=== PATIENT | female | born 1990 | race American Indian/Alaskan Native ===

== ENCOUNTER 2017-01-03 04:59 | Inpatient (IN) | payer MEDICAID ==
[2017-01-03] MEDS ORDERED: POLYCILLIN/NS 2 GM/100 ML 2 GM/100 ML BAG IV ONE (05:43)
[2017-01-03 06:26] LABS: Urine Drugs of Abuse Note Disclamer
[2017-01-03 06:38] LABS: Basophils % (Auto) 0.5 % (0.0-1.8); Eosinophils % (Auto) 0.6 % (0.0-4.3); Hematocrit 37.8 % (30.3-42.9); Hemoglobin 12.8 gm/dl (10.1-14.3); Mean Corpuscular HGB Conc 34 % (30-34); Mean Corpuscular Hemoglobin 31 pg (28-32); Mean Corpuscular Volume 90 fl (79-97); Platelet Count 216 K/mm3 (140-440); Red Blood Count 4.19 M/mm3 (3.65-5.03); Red Cell Distribution Width 13.8 % (13.2-15.2); White Blood Count 14.7 K/mm3 (4.5-11.0)
[2017-01-03] MEDS: LACTATED RINGERS 1,000 ML IV SCH ×3 (06:38→09:32)
[2017-01-03] MEDS ORDERED: SUBLIMAZE ONE (07:00)
[2017-01-03] MEDS ORDERED: SUBLIMAZE IV ONE (07:05)
[2017-01-03] MEDS ORDERED: PITOCin/NS 20 UNIT/1000ML DRIP 20,000 MILLIUNITS/1,000 ML BAG IV ONE ×2 (07:40→15:08)
[2017-01-03 07:53] LABS: HIV-1 Antigen p24 Non React (Non React); HIVR-1/2 Ab Non React (Non React)
[2017-01-03] MEDS ORDERED: ePHEDrine SULFATE ONE (08:34)
--- NOTE | 2017-01-03 08:55 | History and Physical Report ---
History of Present Illness Date of examination: 01/03/17 Date of admission: 01/03/17 05:12 Chief complaint: This is a 26 yo at 39+weeks patient c/o leaking since 3 am meconium stained amnionic fluid History of present illness: 26 yo At 39 weeks admitted for srom meconium at 4cm. Her course consist of poor prentqal care with 3 visits. 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 labs: O+ antibody neg H/H 11.9/35.8 pap normal Rubella IMM RPR NR urine culture neg Hep neg HIV neg HSV2 + chlam neg yeyo neg trich neg US 09/17/16 single viable IUP EGA 17 wekks UA 24+2 weeks EDC 01/05/17nl anatomy GBS neg Past History Past Medical History: no pertinent history Past Surgical History: no surgical history Family/Genetic History: none Social history: single, smoking (former) - Obstetrical History Expected Date of Delivery: 01/05/17 Actual Gestation: 39 Week(s) 5 Day(s) : 1 Para: 0 Hx # Term Pregnancies: 0 Number of Pregnancies: 0 Spontaneous Abortions: 0 Induced : 0 Number of Living Children: 0 Medications and Allergies Allergies Allergy/AdvReac Type Severity Reaction Status Date / Time No Known Allergies Allergy Unverified 09/21/13 06:43 Home Medications Medication Instructions Recorded Confirmed Last Taken Type Famotidine [Pepcid] 20 mg PO BID #60 tablet 09/21/13 Unknown Rx HYDROcodone/APAP 5-325 [[place] 1 each PO Q6HR PRN #20 tablet 09/21/13 Unknown Rx 5/325 mg] Active Meds: Active Medications Lactated Ringer's (Lactated Ringers) 1,000 mls @ 125 mls/hr IV DIRECT YADY Last Admin: 01/03/17 08:06 Dose: 125 mls/hr Ampicillin Sodium (Polycillin/Ns 1 Gm/50 Ml) 1 gm in 50 mls @ 100 mls/hr IV Q4HR YADY PRN Reason: Protocol Review of Systems All systems: negative Constitutional: weight gain Eyes: deferred Ears, nose, mouth and throat: deferred Breasts: deferred Genitourinary: deferred, normal appearance, leakage of fluid (meconium), contractions, no genital sores Rectal Exam: deferred Integumentary: deferred - Vital Signs Vital signs: Vital Signs Pulse BP 62 112/69 01/03/17 05:20 01/03/17 05:20 Temp Pulse Resp BP Pulse Ox 97.1 F L 77 14 134/69 98 01/03/17 07:19 01/03/17 08:45 01/03/17 07:19 01/03/17 08:45 01/03/17 08:43 - Physical Exam Breasts: Positive: normal Cardiovascular: Regular rate, Normal S1 Lungs: Positive: Clear to auscultation, Normal air movement Abdomen: Positive: normal appearance, soft. Negative: distention, tenderness Genitourinary (Female): Positive: normal external genitalia, normal perenium Vulva: both: normal Vagina: Positive: normal moisture Uterus: Positive: enlarged Anus/Rectum: Positive: normal perianal skin Extremities: Positive: normal Deep Tendon Reflex Grade: Normal +2 - Obstetrical FHR: category 1 Uterine Contraction Monitor Mode: Palpation Cervical Dilatation: 7 Cervical Effacement Percentage: 80 station: -1 Uterine Contraction Pattern: Regular Uterine Tone Measurement Phase: Contraction Uterine Contraction Intensity: Moderate Results Result Diagrams: 01/03/17 06:24 Abnormal lab results 01/03/17 Range/Units 06:24 WBC 14.7 H (4.5-11.0) K/mm3 Lymph % (Auto) 11.7 L (13.4-35.0) % [place] # 1.0 H (0.0-0.8) K/mm3 Seg Neutrophils % 80.5 H (40.0-70.0) % Seg Neutrophils # 11.9 H (1.8-7.7) K/mm3 All other labs normal. Assessment and Plan A/P HD#1 PROM, active labor 1. admission labs 2. gbs neg discontinue ampicillin 3. offer epidural 4. augemtnation with pitocin 5. expect vaginal dleivery
--- NOTE | 2017-01-03 09:08 | Anesthesia Consultation ---
Anesthesia Consult and Med Hx Date of service: 01/03/17 - Airway Anesthetic Teeth Evaluation: Good ROM Head & Neck: Adequate Mental/Hyoid Distance: Adequate Mallampati Class: Class II Intubation Access Assessment: Good - Pulmonary Exam CTA: Yes - Cardiac Exam Cardiac Exam: No Murmur - Pre-Operative Health Status ASA Pre-Surgery Classification: ASA2 Proposed Anesthetic Plan: Epidural - Pulmonary Hx Asthma: No COPD: No Hx Pneumonia: No - Cardiovascular System Hx Hypertension: No - Central Nervous System Hx Seizures: No Hx Psychiatric Problems: No - Endocrine Hx Renal Disease: No Hx End Stage Renal Disease: No Hx Hypothyroidism: No Hx Hyperthyroidism: No - Hematic Hx Anemia: No Hx Sickle Cell Disease: No - Other Systems Hx Alcohol Use: Yes ('a glass of wine here and there')
[2017-01-03] MEDS ORDERED: ePHEDrine SULFATE IV PRN (09:30)
[2017-01-03] MEDS ORDERED: fentaNYL-BUPIV 2 MCG/ML-0.125% 200 MCG/100 ML BAG EPIDURAL SCH (10:00)
[2017-01-03] MEDS ORDERED: PITOCin/NS 30 UNIT/500ML 30 UNITS/500 ML BAG IV SCH (10:00)
[2017-01-03] MEDS ORDERED: NARCAN 2 MG/2 ML IV PRN (10:00)
[2017-01-03] MEDS ORDERED: POLYCILLIN/NS 1 GM/50 ML 1 GM/50 ML BAG IV SCH (10:00)
[2017-01-03] MEDS ORDERED: XYLOCAINE 2% INFILTRATI ONE (13:51)
--- NOTE | 2017-01-03 14:14 | Procedure Note ---
OB Delivery Note - Delivery Date of Delivery: 01/03/17 Surgeon: CAIN FRIAS Estimated blood loss: other (400cc) - Vaginal Delivery presentation: vertex Delivery position: OP Intrapartum events: no care, meconium Delivery augmentation: pitocin Delivery monitor: external FHT, external uterine Route of delivery: vacuum extraction Indicators for instrumentation: nonreassuring FHR tracing Delivery placenta: spontaneous Delivery cord: nuchal cord Episiotomy: none Delivery laceration: 2nd degree Delivery repair: vicryl Delivery comments: Under adequate epidural anesthesia, the patient was prepped and draped in the dorsal lithotomy position in the standard fashion. station was confirmed at +4 with the head visible in the direct OP position and the head visible without parting the labia. The KIWI vacuum was placed about the head. Adequate confirmation was identified in association with a single maternal pushing effort and uncomplicated delivery of the head was accomplished. The nuchal area was checked and a nuchal cord x1 was identified. These were reduced easily on the perineum. The was bulb suctioned on the perineum. The head spontaneously rested and the shoulders were brought to direct the anterior posterior diameter of the pelvis. Gentle downward retraction was placed in association, with maternal pushing effort an uncomplicated delivery of the anterior shoulder was accomplished followed by spontaneous delivery of the posterior shoulder and remaining body and small parts. The cord was then doubly clamped and cut. The infant passed off to control tower radio operator nurse for further care. When a 5-minute scores were 8 and 9, segment of cord was sent. The placenta was then delivered manually and all placental parts were accounted for. An examination of the uterus was then performed manually and an empty cavity was confirmed. The cervix and vagina were then examined for hemostasis, which was assured. A small second-degree tear of the vagina and superficial perineum was identified. The vagina was repaired using a running lock suture of 2-0 chromic. The perineum was reapproximated using 2-0 vicryl in an interrupted fashion and the perineal skin was reapproximated with interrupted mattress sutures of 2-0 vicryl. Adequate reapproximation and adequate hemostasis was obtained. Needle and sponge counts were correct. Baby bonding with mother. weight 6 pounds 4 ounces. - Infant A Infant Gender: Female
[2017-01-03] MEDS ORDERED: PERCOCET 5/325 PO PRN (14:19)
[2017-01-03] MEDS ORDERED: PHENERGAN PR PRN (14:19)
[2017-01-03] MEDS ORDERED: MILK OF MAGNESIA PO PRN (14:19)
[2017-01-03] MEDS ORDERED: DULCOLAX PR PRN (14:19)
[2017-01-03] MEDS ORDERED: PHENERGAN PO PRN (14:19)
[2017-01-03] MEDS ORDERED: TORADOL IV PRN (14:19)
[2017-01-03] MEDS ORDERED: BENADRYL PO PRN (14:19)
[2017-01-03] MEDS ORDERED: TUCKS PAD TP PRN (14:19)
[2017-01-03] MEDS ORDERED: ZOFRAN IV PRN (14:19)
[2017-01-03] MEDS ORDERED: LANSINOH TP PRN (14:19)
[2017-01-03] MEDS ORDERED: TYLENOL PO PRN (14:19)
[2017-01-03] MEDS ORDERED: DERMOPLAST TP PRN (14:19)
[2017-01-03] MEDS ORDERED: SODIUM CHLORIDE FLUSH SYRINGE 10 ML IV NR (15:00)
[2017-01-03] MEDS ORDERED: SENOKOT S PO SCH (15:00)
[2017-01-03] MEDS: MOTRIN PO SCH ×3 (17:07→23:39)
[2017-01-03] MEDS: NORCO 5/325 PO PRN (17:09)
[2017-01-03] MEDS: COLACE PO SCH (22:06)
[2017-01-04] MEDS: MOTRIN PO SCH ×5 (00:15→23:33)
[2017-01-04 07:26] LABS: Hemoglobin 10.8 gm/dl (10.1-14.3)
--- NOTE | 2017-01-04 07:42 | Progress Note ---
Assessment and Plan A: PPD#1 s/p VAVD at term P: Routine care. Meeting with nursing supervisor cytology. Discharge tomorrow morning. Subjective - Subjective Date of service: 01/04/17 Principal diagnosis: s/p VAVD at term Interval history: Pt dissatisfied with her nursing staff overnight. No medical complaints. Patient reports: appetite normal, pain poorly controlled, ambulating normally : doing well Objective - Vital Signs Latest vital signs: Vital Signs Temp Pulse Pulse Resp BP BP Pulse Ox 01/04/17 05:45 18 01/04/17 00:10 99.0 F 62 18 112/53 01/03/17 23:39 18 01/03/17 21:23 98.5 F 62 20 119/61 01/03/17 15:50 98.7 F 57 L 20 112/67 01/03/17 15:18 58 L 117/51 01/03/17 15:04 64 127/72 01/03/17 14:43 67 98 01/03/17 14:38 75 98 01/03/17 14:34 67 130/70 01/03/17 14:33 67 97 01/03/17 14:28 70 98 01/03/17 14:24 71 123/76 01/03/17 14:23 68 98 01/03/17 14:18 74 97 01/03/17 14:13 80 98 01/03/17 13:48 58 L 98 01/03/17 13:43 54 L 99 01/03/17 13:38 80 97 01/03/17 13:33 74 97 01/03/17 13:22 68 93 01/03/17 13:21 64 153/64 01/03/17 13:17 60 96 01/03/17 13:10 62 94 01/03/17 13:03 62 96 01/03/17 12:58 55 L 97 01/03/17 12:55 55 L 129/60 94 01/03/17 12:53 55 L 97 01/03/17 12:52 55 L 158/69 01/03/17 12:48 60 96 01/03/17 12:46 69 93 01/03/17 12:43 64 97 01/03/17 12:38 71 97 01/03/17 12:33 56 L 97 01/03/17 12:28 54 L 95 01/03/17 12:23 56 L 97 01/03/17 12:22 59 L 144/60 01/03/17 12:18 60 96 01/03/17 12:13 58 L 97 01/03/17 12:08 59 L 98 01/03/17 12:03 61 98 01/03/17 11:58 59 L 98 01/03/17 11:57 55 L 93 01/03/17 11:55 59 L 136/64 01/03/17 11:53 62 97 01/03/17 11:48 57 L 98 01/03/17 11:43 65 99 01/03/17 11:38 60 99 01/03/17 11:33 60 99 01/03/17 11:28 61 98 01/03/17 11:23 62 98 01/03/17 11:18 59 L 99 01/03/17 11:16 57 L 93 01/03/17 11:13 57 L 99 01/03/17 11:08 60 99 01/03/17 11:03 56 L 97 01/03/17 10:58 50 L 97 01/03/17 10:53 55 L 99 01/03/17 10:48 61 98 01/03/17 10:43 68 97 01/03/17 10:38 58 L 98 01/03/17 10:35 55 L 115/57 01/03/17 10:33 60 97 01/03/17 10:28 62 97 01/03/17 10:23 68 98 01/03/17 10:21 63 149/80 01/03/17 10:18 62 98 01/03/17 10:13 58 L 97 01/03/17 10:08 64 97 01/03/17 10:03 65 98 01/03/17 09:58 89 98 01/03/17 09:55 58 L 131/80 01/03/17 09:53 65 98 01/03/17 09:48 78 99 01/03/17 09:43 63 99 01/03/17 09:38 61 99 01/03/17 09:33 70 99 01/03/17 09:28 58 L 99 01/03/17 09:23 60 100 01/03/17 09:19 66 109/55 01/03/17 09:18 59 L 106/68 100 01/03/17 09:14 71 89 01/03/17 09:13 67 96 01/03/17 09:09 67 124/71 01/03/17 09:08 74 99 01/03/17 09:07 90 112/59 01/03/17 09:05 70 114/56 01/03/17 09:03 81 117/59 99 01/03/17 09:01 60 114/56 01/03/17 09:00 57 L 112/62 01/03/17 08:58 59 L 102/56 99 01/03/17 08:53 68 97 01/03/17 08:52 67 152/81 01/03/17 08:49 67 131/63 01/03/17 08:48 68 99 01/03/17 08:47 63 120/64 01/03/17 08:45 77 134/69 01/03/17 08:43 67 134/63 98 01/03/17 08:41 70 133/74 01/03/17 08:38 81 98 01/03/17 08:30 84 97 01/03/17 08:25 66 98 01/03/17 08:12 89 99 01/03/17 08:07 96 H 99 01/03/17 08:06 65 120/70 01/03/17 08:02 68 97 01/03/17 07:57 83 100 01/03/17 07:52 70 96 01/03/17 07:47 72 98 01/03/17 07:45 62 80 L Intake and Output 01/03/17 01/04/17 01/04/17 22:59 06:59 14:59 Intake Total 150 Output Total 200 350 Balance -50 -350 Intake: IV 150 POLYCILLIN/NS 2 GM/100 ML 150 2 gm In 100 ml @ 100 mls /hr IV ONCE ONE Rx#: [id number] Output: Urine 200 350 Void 200 350 Other: Total, Output Amount 200 350 # Voids Void 1 1 - Exam Breasts: Present: deferred Cardiovascular: Present: Regular rate Lungs: Present: Clear to auscultation Abdomen: Present: soft Uterus: Present: fundal height below umbilicus Extremities: Present: normal
--- NOTE | 2017-01-04 07:54 | Discharge Summary ---
Providers - Providers Date of Admission: 01/03/17 05:12 Date of discharge: 01/05/17 Attending physician: CAIN FRIAS MD Primary care physician: CAIN FRIAS MD Hospitalization Reason for admission: active labor Delivery: vacuum extraction Procedure details: Please see delivery note. Episiotomy: none Laceration: 2nd degree Incision: intact Other procedures: none complications: none Discharge diagnosis: IUP at term delivered baby: female Hospital course: Pt underwent VAVD which she tolerated well. Her course was uncomplicated and she met discharge criteria on PPD#2. Condition at discharge: Stable Disposition: DISCHARGED TO HOME OR SELFCARE - Discharge Diagnoses (1) Term of female Status: Acute (2) Insufficient care Status: Acute Qualifiers: Trimester: third trimester Qualified Code(s): O09.33 - Supervision of with insufficient care, third trimester Plan - Discharge Medications Prescriptions: HYDROcodone/APAP 5-325 [[place] 5/325] 1 each PO Q6HR PRN #20 tablet PRN Reason: Pain Ibuprofen [Motrin] 800 mg PO Q8HR PRN #30 tablet PRN Reason: Pain Vit-Fe Fumar-FA [ Vitamin] 1 tab PO QDAY #30 tablet - Provider Discharge Summary Activity: routine, no sex for 6 weeks, no heavy lifting 4 weeks, no strenuous exercise Diet: routine Instructions: routine Additional instructions: [] Smoking cessation referral if applicable(refer to patient education folder for contact #) [] Refer to [facility]'s [facility] Booklet Call your doctor immediately for: * Fever > 100.5 * Heavy vaginal bleeding ( >1 pad per hour) * Severe persistent headache * Shortness of breath * Reddened, hot, painful area to leg or breast * Drainage or odor from incision. * Keep incision clean and dry at all times and follow doctor's instructions regarding bathing/showering - Follow up plan Follow up: CAIN FRIAS MD [Primary Care Provider] - 02/02/17 ( exam. Please call and schedule appt )
[2017-01-04] MEDS: PRENATAL VITAMIN PO SCH (10:32)
[2017-01-04] MEDS: COLACE PO SCH ×2 (10:32→22:03)
[2017-01-04] MEDS: NORCO 5/325 PO PRN (11:15)
[2017-01-05] MEDS: MOTRIN PO SCH ×2 (05:14→11:32)
[2017-01-05 08:45] VITALS: BP 123/78
[2017-01-05] MEDS: NORCO 5/325 PO PRN (11:31)
[2017-01-05] MEDS: PRENATAL VITAMIN PO SCH (11:32)
[2017-01-05] MEDS: COLACE PO SCH (11:33)
== END 2017-01-05 16:20 | disposition home or self-care (01) | DRG 774 ==
LOC: TRG 04:59 → LD 05:12 → OB 15:50
PROVIDERS: ADMIT Obstetrics & Gynecology; ATTEND Obstetrics & Gynecology
PROC: 10D07Z6 Extraction of Products of Conception, Vacuum, Via Natural or Artificial Opening (ICD-10-PCS; principal; 2017-01-03)
PROC: 0KQM0ZZ Repair Perineum Muscle, Open Approach (ICD-10-PCS; 2017-01-03)
PROC: 3E0S3CZ (ICD-10-PCS; 2017-01-03)
PROC: 00HU33Z Insertion of Infusion Device into Spinal Canal, Percutaneous Approach (ICD-10-PCS; 2017-01-03)
DX: O69.81X0 Labor and delivery complicated by cord around neck, without compression, not applicable or unspecified (principal); O98.52 Other viral diseases complicating childbirth; B00.9 Herpesviral infection, unspecified; O77.0 Labor and delivery complicated by meconium in amniotic fluid; O70.1 Second degree perineal laceration during delivery; Z3A.39 39 weeks gestation of pregnancy; Z37.0 Single live birth; O42.92 Full-term premature rupture of membranes, unspecified as to length of time between rupture and onset of labor; O09.33 Supervision of pregnancy with insufficient antenatal care, third trimester
CPT/HCPCS: 36415; 80307; 85014; 85018; 85025; 85660; 86706; 86762; 86803; 86850; 86900; 86901; 87806; 99211; A6250; G0463; J0290; J2590; J3010; J7120

== ENCOUNTER 2017-12-10 12:42 | Emergency (ER) | payer SELFPAY ==
[2017-12-10 14:30] LABS: Basophils % (Auto) 0.3 % (0.0-1.8); Eosinophils % (Auto) 0.3 % (0.0-4.3); Hematocrit 44.8 % (30.3-42.9); Hemoglobin 14.9 gm/dl (10.1-14.3); Lymphocytes # (Auto) 1.6 K/mm3 (1.2-5.4); Lymphocytes % (Auto) 16.2 % (13.4-35.0); Mean Corpuscular HGB Conc 33 % (30-34); Mean Corpuscular Hemoglobin 32 pg (28-32); Mean Corpuscular Volume 97 fl (79-97); Monocytes # (Auto) 0.6 K/mm3 (0.0-0.8); Monocytes % (Auto) 6.4 % (0.0-7.3); Platelet Count 318 K/mm3 (140-440); Red Blood Count 4.62 M/mm3 (3.65-5.03); Red Cell Distribution Width 14.2 % (13.2-15.2)
[2017-12-10 14:43] LABS: Bilirubin,Urine NEG (Negative); Blood,Urine NEG (Negative); Color,Urine Yellow (Yellow); Mucus,Urine 1+ /HPF; Protein,Urine <15 mg/dL mg/dL (Negative); Urobilinogen,Urine < 2.0 mg/dL (<2.0)
[2017-12-10 14:45] LABS: HCG Qualitative,Urine Negative (Negative)
[2017-12-10 14:54] LABS: Alanine Aminotransferase 13 units/L (7-56); Albumin 4.5 g/dL (3.9-5); BUN/Creatinine Ratio 13; Blood Urea Nitrogen 8 mg/dL (7-17); Calcium 10.2 mg/dL (8.4-10.2); Hemolysis Index 6; Lipase 16 units/L (13-60)
[2017-12-10] MEDS ORDERED: PEPCID IV ONE (21:52)
[2017-12-10] MEDS ORDERED: ZOFRAN IV ONE (21:52)
[2017-12-10] MEDS ORDERED: NACL 0.9% 1000 ML 1,000 ML IV ONE (21:52)
--- NOTE | 2017-12-10 23:06 | Ultrasound Report ---
FINAL REPORT PROCEDURE: US ABDOMEN LIMITED TECHNIQUE: Real-time sonography was performed of the right upper quadrant with image documentation. CPT 53800 HISTORY: ruq pain [place] COMPARISON: No prior studies are available for comparison. FINDINGS: Liver echogenicity appears normal. No masses are seen. The intrahepatic ducts are not distended. Common bile duct is normal caliber measuring 2.6 millimeter. Gallbladder is normal appearance. Right kidney showed no abnormalities measuring 11.9 centimeters greatest length. No ascites is seen.. IMPRESSION: Negative exam.
[2017-12-10] MEDS ORDERED: TYLENOL PO ONE (23:18)
--- NOTE | 2017-12-10 23:29 | Emergency Department Report ---
Vomiting/Diarrhea - HPI Chief Complaint: Abdominal Pain Stated Complaint: VOMITING/DIARRHEA Time Seen by Provider: 12/10/17 21:46 Duration: 2 Days Severity: moderate Nausea/Vomiting Severity: Moderate Diarrhea Severity: Mild Pain Location: Epigastric (and RUQ) Pain Severity: Mild Symptoms: Yes Watery Diarrhea, Yes Recent Unusual Foods (pt ate some pizza yesterday and started vomiting soon after), No Bloody diarrhea, No Fever, No Able to Tolerate Fluids, No Recent Untreated Water, No Recent use of Antibiotics , No Family w/ Similar Symptoms, No Contacts w/ Similar Symptoms, No Rash, No Hematuria, No Recent URI Symptoms ED Review of Systems ROS: Stated complaint: VOMITING/DIARRHEA Other details as noted in HPI Comment: All other systems reviewed and negative ED Past Medical Hx - Past Medical History Previous Medical History?: No Hx Hypertension: No Hx Congestive Heart Failure: No Hx Diabetes: No Hx Deep Vein Thrombosis: No Hx Renal Disease: No Hx Sickle Cell Disease: No Hx Seizures: No Hx Asthma: No Hx COPD: No - Surgical History Past Surgical History?: No - Social History Smoking Status: Never Smoker - Medications Home Medications: Home Medications Medication Instructions Recorded Confirmed Last Taken Type Famotidine [Pepcid] 20 mg PO BID #60 tablet 09/21/13 01/03/17 Unknown Rx HYDROcodone/APAP 5-325 [[place] 1 each PO Q6HR PRN #20 tablet 09/21/13 01/03/17 Unknown Rx 5/325 mg] HYDROcodone/APAP 5-325 [[place] 1 each PO Q6HR PRN #20 tablet 01/04/17 Unknown Rx 5/325] Ibuprofen [Motrin] 800 mg PO Q8HR PRN #30 tablet 01/04/17 Unknown Rx Vit-Fe Fumar-FA [ 1 tab PO QDAY #30 tablet 01/04/17 Unknown Rx Vitamin] Ondansetron [Zofran Odt] 4 mg PO Q8HR PRN #10 tab.rapdis 12/10/17 Unknown Rx Vomiting Diarrhea Exam - Exam General: Vital signs noted. No distress. Alert and acting appropriately. HEENT: Yes Moist Mucous Membranes, No Pharyngeal Erythema, No Pharyngeal Exudates, No Rhinorrhea, No Conjuctival Injection, No Frontal Tenderness, No Maxillary Tenderness Neck: No Adenopathy, No Rigidity Lungs: Yes Clear Lung Sounds, Yes Good Air Exchange, No Wheezes, No Stridor, No Cough, No Nasal Flaring, No Retractions, No Use of Accessory Muscles Heart exam: Regular: Yes, Murmur: No, Tachycardia: No Abdomen: Tenderness: No, Peritoneal Signs: No, Distention: No, Hyperactive Bowel sounds: No Skin exam: Rash: No, Edema: No, Normal turgor: Yes Neurologic: Alert and oriented, no deficits. Musculoskeletal: Unremarkable. ED Course Vital Signs 12/10/17 12/10/17 12/10/17 13:07 21:43 21:45 Temperature 99.2 F Pulse Rate 70 Respiratory 18 16 Rate Blood Pressure 142/92 O2 Sat by Pulse 99 98 96 Oximetry ED Medical Decision Making - Lab Data Result diagrams: 12/10/17 14:21 12/10/17 14:21 Lab Results 12/10/17 12/10/17 12/10/17 Range/Units 14:21 14:21 Unknown WBC 9.6 (4.5-11.0) K/mm3 RBC 4.62 (3.65-5.03) M/mm3 Hgb 14.9 H (10.1-14.3) gm/dl Hct 44.8 H (30.3-42.9) % MCV 97 (79-97) fl MCH 32 (28-32) pg MCHC 33 (30-34) % RDW 14.2 (13.2-15.2) % Plt Count 318 (140-440) K/mm3 Lymph % (Auto) 16.2 (13.4-35.0) % [place] % (Auto) 6.4 (0.0-7.3) % Eos % (Auto) 0.3 (0.0-4.3) % Baso % (Auto) 0.3 (0.0-1.8) % Lymph # 1.6 (1.2-5.4) K/mm3 [place] # 0.6 (0.0-0.8) K/mm3 Eos # 0.0 (0.0-0.4) K/mm3 Baso # 0.0 (0.0-0.1) K/mm3 Seg Neutrophils % 76.8 H (40.0-70.0) % Seg Neutrophils # 7.4 (1.8-7.7) K/mm3 Sodium 138 (137-145) mmol/L Potassium 4.1 (3.6-5.0) mmol/L Chloride 94.9 L (98-107) mmol/L Carbon Dioxide 26 (22-30) mmol/L Anion Gap 21 mmol/L BUN 8 (7-17) mg/dL Creatinine 0.6 L (0.7-1.2) mg/dL Estimated GFR > 60 ml/min BUN/Creatinine Ratio 13 % Glucose 88 (65-100) mg/dL Calcium 10.2 (8.4-10.2) mg/dL Total Bilirubin 0.50 (0.1-1.2) mg/dL AST 20 (5-40) units/L ALT 13 (7-56) units/L Alkaline Phosphatase 71 (35-129) units/L Total Protein 7.4 (6.3-8.2) g/dL Albumin 4.5 (3.9-5) g/dL Albumin/Globulin Ratio 1.6 % Lipase 16 (13-60) units/L Urine Color Yellow (Yellow) Urine Turbidity Clear (Clear) Urine pH 6.0 (5.0-7.0) Ur Specific [place] 1.020 (1.003-1.030) Urine Protein <15 mg/dl (Negative) mg/dL Urine Glucose (UA) Neg (Negative) mg/dL Urine Ketones 20 (Negative) mg/dL Urine Blood Neg (Negative) Urine Nitrite Neg (Negative) Urine Bilirubin Neg (Negative) Urine Urobilinogen < 2.0 (<2.0) mg/dL Ur Leukocyte Esterase Neg (Negative) Urine WBC (Auto) 1.0 (0.0-6.0) /HPF Urine RBC (Auto) 3.0 (0.0-6.0) /HPF U Epithel Cells (Auto) 1.0 (0-13.0) /HPF Urine Mucus 1+ /HPF Urine HCG, Qual Negative (Negative) - Radiology Data Radiology results: report reviewed no gallstones present - Medical Decision Making Patient is a 27-year-old female presented with nausea vomiting and epigastric right upper quadrant pain. Patient's ultrasounds within normal limits. Patient is feeling better after Zofran and fluids and will be discharged home. Critical care attestation.: If time is entered above; I have spent that time in minutes in the direct care of this critically ill patient, excluding procedure time. ED Disposition Clinical Impression: Gastritis Qualifiers: Gastritis type: unspecified gastritis Chronicity: acute Gastritis bleeding: without bleeding Qualified Code(s): K29.00 - Acute gastritis without bleeding Disposition: TO HOME OR SELFCARE Is pt being admited?: No Does the pt Need Aspirin: No Condition: Stable Instructions: Abdominal Pain (ED), Food Poisoning (ED) Prescriptions: Ondansetron [Zofran Odt] 4 mg PO Q8HR PRN #10 tab.rapdis PRN Reason: Nausea Referrals: PRIMARY CARE,MD [Primary Care Provider] - 3-5 Days
[2017-12-10 23:47] VITALS: BP 118/70
== END 2017-12-10 23:48 | disposition home or self-care (01) ==
LOC: ED 12:42
DX: K29.70 Gastritis, unspecified, without bleeding (principal)
CPT/HCPCS: 36415; 76705; 80053; 81001; 81025; 83690; 85025; 96361; 96374; 96375; 99284; J2405; J7030